=== PATIENT | female | born 1940 | race Caucasian/White ===

== ENCOUNTER 2021-12-14 22:14 | Emergency (ER) | payer OTHER ==
[2021-12-14 22:23] VITALS: PULSE 82; RESP 16; TEMP 98.6; BMI 23.8
[2021-12-14] MEDS ORDERED: cloNIDine HCL 0.1 MG TABLET PO ONE (22:32)
[2021-12-14] MEDS ORDERED: cloNIDine HCL 0.1 MG TABLET ONE (22:34)
[2021-12-14 23:42] VITALS: BP 115/53
== END 2021-12-14 23:43 | disposition home or self-care (01) ==
LOC: FER 22:14
DX: I10 Essential (primary) hypertension (principal)
CPT/HCPCS: 99283-25